=== PATIENT | male | born 1955 | race Caucasian/White ===

== ENCOUNTER 2019-03-02 08:29 | Outpatient (CLI) | payer MEDICAID, SELFPAY ==
[2019-03-02 08:54] LABS: Abs Immature Grans 0.43 k/cumm (0.0-0.09); HCT 31.3 % (40.0-50.0); HGB 10.5 g/dL (13.5-17.5); Mean Corp. HGB Concentration 33.5 g/dL (32.0-36.0); Mean Corpuscular Hemoglobin 28.5 pg (27.0-33.0); Mean Corpuscular Volume 85.1 fL (80-95); Mean Platelet Volume 9.4 fL (8.0-11.0); Platelet Count 106 x1000/uL (130-400); RBC 3.68 m/cumm (4.50-6.00); RBC Distribution Width 17.8 % (11.8-14.1)
[2019-03-02 09:07] LABS: ALT 21 U/L (16-63); AST 14 U/L (15-37); Albumin 3.4 g/dL (3.4-5.0); Alkaline Phosphatase 112 U/L (46-116); BUN 12 mg/dL (7-18); Bilirubin, Total 0.2 mg/dL (0.2-1.0); CREATININE 0.81 mg/dL (0.70-1.30); Chloride 102 mmol/L (98-107); Glucose 127 mg/dL (74-106); LDH 192 U/L (85-227); Sodium 138 mmol/L (136-145); Total Protein 7.1 g/dL (6.4-8.2)
[2019-03-02 09:11] LABS: Absolute Basophil Count 0.18 k/cumm (0.0-0.2); Absolute Eosinophil Count 0.27 k/cumm (0.0-0.7); Absolute Lymphocyte Count 0.91 k/cumm (1.2-3.4); Absolute Monocyte Count 0.73 k/cumm (0.11-0.7); Absolute Neutrophil Count 6.28 k/cumm (1.2-6.7); Diff Comment Manual Differential
[2019-03-02 09:12] LABS: Anisocytosis 1+
[2019-03-02 09:14] LABS: Poikilocytes 1+
== END 2019-03-02 08:49 ==
PROVIDERS: PCP Nurse Practitioner Family; Visit Provider Internal Medicine Hematology & Oncology
DX: C83.32 Diffuse large B-cell lymphoma, intrathoracic lymph nodes (principal)
CPT/HCPCS: 36415; 80053; 83615; 85025

== ENCOUNTER 2022-08-20 14:42 | Outpatient (CLI) | payer MEDICARE, MEDICAID, SELFPAY ==
[2022-08-20 13:52] LABS: LDH 226 U/L (85-227)
== END 2022-08-20 14:43 | disposition home or self-care (01) ==
LOC: LBO 14:44
PROVIDERS: PCP Nurse Practitioner Family; Visit Provider Internal Medicine Hematology & Oncology
DX: C83.32 Diffuse large B-cell lymphoma, intrathoracic lymph nodes (principal)
CPT/HCPCS: 36415; 83615